=== PATIENT | male | born 1960 | race Caucasian/White ===

== ENCOUNTER 2016-04-23 09:12 | Day surgery (SDC) | payer OTHER ==
--- NOTE | 2016-04-22 16:33 | PCM.PREANE ---
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 Respiratory: Reports: no symptoms Cardiovascular: Reports: no symptoms GI: Reports: no symptoms Other: Reports: diabetes (Type II, suboptimal control, HGB A1C 7.9 on 04/11/16) - PHYSICAL ASSESSMENT Height: 1.65 m Weight: 77.111 kg NPO Status Date: 04/22/16 NPO Status Time: 21:00 ASA Class: 3 Mental Status: alert & oriented x3 Airway Class: Mallampati = 2 Dentition: Reports: dentures (upper) Thyro-Mental Finger Breadths: 3 Mouth Opening Finger Breadths: 3 ROM/Head Extension: full Respiratory Status: lungs clear to auscultation bilaterally Cardiovascular Status: regular rate & rhythm, normal S1, S2, no murmur, blood pressure WNL - ALLERGIES Allergies/Adverse Reactions: Allergies Allergy/AdvReac Type Severity Reaction Status Date / Time meperidine HCl [From Demerol] Allergy Hives Verified 07/04/15 18:59 CT dye Allergy Tachycardia Uncoded 07/04/15 18:59 - ANESTHESIA PLAN Anesthesia Type Planned: general anesthesia, regional block (probable ISB with GETA) - ACKNOWLEDGEMENTS Pt an appropriate candidate for the planned anesthesia: Yes Alternatives and risks of anesthesia discussed w pt/guardian: Yes Pt/Guardian understands and agree with anesthesia plan: Yes PreAnesthesia Questionnaire HEENT History: Reports: Allergic rhinitis, Other (see below) Other HEENT History: wears glasses, has upper denture Cardiovascular History: Reports: High cholesterol Respiratory History: Reports: Sleep apnea Other Respiratory History: sleep apnea in the past, had uvualaectomy, no significant sypmtoms, does not use CPAP Gastrointestinal History: Reports: PUD Other Gastrointestinal History: Gastric ulcer Genitourinary History: Reports: Prostate disorder Psychiatric History: Reports: None Endocrine/Metabolic History: Reports: Diabetes, type II Other Endocrine/Metabolic History: Suboptimal control of Type II diabetes per preoperative exam on 04/11/16. HGB A1C 7.9 in past 2 weeks, improved from 10.1. Oncologic (Cancer) History: Reports: Prostate - Infectious Disease History Infectious Disease History: Reports: None - Past Surgical History Head Surgeries/Procedures: Reports: None HEENT Surgical History: Reports: Naso-sinus surgery, Tonsillectomy Other HEENT Surgeries/Procedures: uvelectomy. septoplasty GI Surgical History: Reports: Appendectomy, Hernia, inguinal Male Surgical History: Reports: Prostatectomy Other Male Surgeries/Procedures: radical prostatectomy Musculoskeletal Surgical History: Reports: Arthroscopic knee, Carpal tunnel Other Musculoskeletal Surgeries/Procedures:: ankle surgery for torn tendons, also right pinky finger degloved in 2001 - SUBSTANCE USE Smoking Status *Q: Current Some Day Smoker Tobacco Use Within Last Twelve Months: Cigars Second Hand Smoke Exposure: No Days Per Week of Alcohol Use: 7 Number of Drinks Per Day: 2 Total Drinks Per Week: 14 Recreational Drug Use History: No - HOME MEDS Home Medications: Home Meds Dulaglutide [Trulicity] 1.5 mg SQ ASDIRECTED 07/04/15 [History] Empagliflozin [Jardiance] 25 mg PO DAILY 07/04/15 [History] atorvaSTATin [Lipitor] 20 mg PO DAILY 07/04/15 [History] Celecoxib 200 mg PO DAILY 04/18/16 [History] Diazepam [Valium] 1 tab PO ASDIRECTED PRN 04/18/16 [History] Glimepiride [Amaryl] 2 mg PO DAILY 04/18/16 [History] - CURRENT (IN HOUSE) MEDS Current Meds: Current Medications Lactated Ringer's (Ringers, Lactated) 1,000 mls @ 100 mls/hr IV ASDIRECTED NELSON Cefazolin Sodium/Dextrose 2 gm (/ Premix) 50 mls @ 100 mls/hr IV ONCALL NELSON Ketorolac Tromethamine (Toradol) 10 mg PO Q6H PRN PRN Reason: Pain Stop: 04/28/16 08:01
[~2016-04-23 09:12] MED LIST: Ketorolac 10 MG Tab PO PRN; Lactated Ringers 1,000 ML IV SCH; ceFAZolin 2 GM in Premix Bag 1 BAG IV SCH
[2016-04-23] MEDS ORDERED: Rocuronium 10 MG/ML 10 ML Syringe ONE (10:03)
[2016-04-23] MEDS ORDERED: Neostigmine Methylsulfate 1 MG/ML 5 ML Syringe ONE (10:03)
[2016-04-23] MEDS ORDERED: Midazolam 1 MG/ML 2 ML SDV ONE (10:03)
[2016-04-23] MEDS ORDERED: Propofol 200 MG/20 ML SDV ONE (10:03)
[2016-04-23] MEDS ORDERED: Lidocaine 2% 5 ML SDV ONE (10:03)
[2016-04-23] MEDS ORDERED: Ondansetron 4 MG/2 ML SDV ONE (10:03)
[2016-04-23] MEDS ORDERED: fentaNYL 250 MCG/5 ML SDV ONE ×2 (10:04→11:40)
[2016-04-23] MEDS ORDERED: Scopolamine 1.5 MG Transdermal Patch TOP ONE (10:12)
[2016-04-23] MEDS ORDERED: Succinylcholine/Normal Saline 200 MG/10 ML Syringe IV ONE (11:23)
[2016-04-23] MEDS ORDERED: ceFAZolin 1 GM Vial ONE (11:31)
[2016-04-23] MEDS ORDERED: Sodium Chloride 0.9% 20 ML ONE (11:31)
[2016-04-23] MEDS ORDERED: Labetalol 5 MG/ML 5 ML Syringe ONE (11:43)
[2016-04-23] MEDS ORDERED: Phenylephrine/Normal Saline 100 MCG/ML 10 ML Syringe ONE (12:13)
[2016-04-23] MEDS ORDERED: ePHEDrine 50 MG/ML SDV ONE (12:37)
--- NOTE | 2016-04-23 13:19 | PCM.OPNOTE ---
- General Post-Op/Procedure Note Date of Surgery/Procedure: 04/23/16 Operative Procedure(s): Right shoulder arthroscopy with SAD, debridement of anterior labrum Post-Op Diagnosis: R shoulder impingement. R shoulder degenerative anterior labral tear Anesthesia Technique: General ET tube Primary Surgeon: Mine Martinez Slitting And Shipping Supervisor: Ike Escobar in mLs: 5 Condition: Good Free Text/Narrative:: #[id number]
[2016-04-23] MEDS ORDERED: Acetaminophen/HYDROcodone 325-10 MG Tab PO PRN (13:24)
[2016-04-23] MEDS ORDERED: fentaNYL 100 MCG/2 ML SDV IVPUSH PRN (13:36)
[2016-04-23] MEDS: HYDROmorphone 2 MG/ML Syringe IVPUSH PRN ×4 (13:40→14:10)
--- NOTE | 2016-04-23 14:19 | PCM.POSTAN ---
POST ANESTHESIA ASSESSMENT - MENTAL STATUS Mental Status: alert, oriented - VITAL SIGNS Pulse Rate: 67 SaO2: 97 Resp Rate: 10 Blood Pressure: 141/88 - RESPIRATORY Respiratory Status: respiratory rate WNL, airway patent, O2 saturation stable, supplemental oxygen - CARDIOVASCULAR CV Status: pulse rate WNL, blood pressure stable - GASTROINTESTINAL GI Status: no symptoms - PAIN Pain Score: 7 (but pt resting comfortably with RR 10/min and states he's doing "better") - POST OP HYDRATION Hydration Status: adequate & stable
[2016-04-23] MEDS ORDERED: Ketorolac 30 MG/ML SDV IVPUSH SCH (14:30)
--- NOTE | 2016-04-23 15:09 | PCM48HPAN ---
Post Anesthesia Note - EVALUATION WITHIN 48HRS OF ANESTHETIC Vital Signs in Normal Range: Yes Patient Participated in Evaluation: Yes Respiratory Function Stable: Yes Airway Patent: Yes Cardiovascular Function Stable: Yes Hydration Status Stable: Yes Pain Control Satisfactory: Yes Nausea and Vomiting Control Satisfactory: Yes Mental Status Recovered: Yes
[2016-04-23 15:40] VITALS: BP 107/69
--- NOTE | 2016-04-23 22:05 | OR ---
SURGEON: Mine Martinez MD DATE OF PROCEDURE: 04/23/2016 PREOPERATIVE DIAGNOSES: 1. Right shoulder partial rotator cuff tear. 2. Right shoulder impingement syndrome. POSTOPERATIVE DIAGNOSES: 1. Right shoulder impingement syndrome. 2. Right shoulder degenerative anterior labral tear. PROCEDURE: Right shoulder arthroscopy with: 1. Debridement of degenerative anterior labral tear. 2. Subacromial decompression with bursectomy, release of coracoacromial ligament, and acromioplasty. OPTICAL ENGINEERING TECHNICIAN: Ike Escobar PA-C. ANESTHESIA: General. ESTIMATED BLOOD LOSS: 5 mL. TOURNIQUET TIME: 0 minutes. COMPLICATIONS: None. DVT PROPHYLAXIS: PAS boots to bilateral lower extremities. IMPLANTS: None. BRIEF HISTORY: Crow is a 55-year-old male, who has had complaint of progressive right shoulder pain. He had failed conservative treatment. Due to his lack of response to conservative treatment, I did recommend surgical intervention. The risks and goals of procedure were discussed with the patient and documented preoperatively. He agreed to proceed. DESCRIPTION OF PROCEDURE: The patient was properly identified and brought to the operating room. He was transferred from the operating room cart to the OR table and placed in supine position. General anesthesia was administered. After adequate anesthesia was obtained, the patient was placed into a beach-chair type position. His head was secured. Care was taken to pad all bony prominences. The right upper extremity was then prepped in standard fashion using ChloraPrep solution. It was then sterilely draped. A time-out was performed to ensure correct site and procedure. Preoperative antibiotics were given. The surgical site had been marked preoperatively. Bony landmarks were marked with a marking pen. Approximately 30 mL of normal saline was introduced into the glenohumeral joint. A posterior portal was then established. Blunt trocar and cannula were introduced into the glenohumeral joint. Camera, inflow, and outflow were assembled. He did have some mild synovitis in the rotator interval. An anterior portal was established. A probe was inserted. The subscapularis was visualized and probed and found to be intact. No loose bodies were identified in the subscapular recess. The anterior labrum showed minor degenerative fraying. There was an area of synovitis along the insertion of the biceps on the superior glenoid. The insertion of the biceps was inspected. There did not appear to be any significant tearing. The biceps was pulled into the joint and no longitudinal tearing or synovitis was noted distally. Electrocautery was then used to resect the portion of the synovitis along with the degenerative anterior labral tear. The posterior labrum did not show any significant degenerative findings. 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 The minor softening consistent with grade 1 to grade 2 chondromalacia was also noted along the humeral head diffusely. The axillary pouch was then entered. No loose bodies were identified. The arm was then brought into an abducted and externally rotated position. The bare area was noted posteriorly. There was good cuff insertion from this point anterior. MRI did show some tearing of the anterior supraspinatus. This was looked at from the articular side and no significant tearing or retraction was noted. The instruments were then removed from the glenohumeral joint. I then entered the subacromial space. Camera, inflow, and outflow were again assembled. A lateral portal was established. A shaver was inserted. Using a combination of the shaver and electrocautery, an extensive bursectomy was performed. He did have quite a bit of hemorrhagic bursal tissue which was adherent to the cuff. This was completely cleared along with the lateral gutter which showed some impingement in that area as well. He did have a large anterior downward slope to his acromion. The coracoacromial ligament was released. A 5.0 mm bur was used to perform an acromioplasty which provided good decompression of the subacromial space. The rotator cuff was then inspected. The anterior portion did not show any significant tearing. I did probe the area extensively and no softening or tearing was noted. The remainder of the cuff was intact as well. I elected not to proceed with the rotator cuff repair. Instruments were then removed from the shoulder. The portal sites were closed with 3-0 nylon. Xeroform gauze was placed over the wound and a bulky dressing was applied. He was awakened from his anesthetic and transferred back to the operating room cart. He was brought to recovery room in stable condition. A sling was placed. All needle and sponge counts were correct. KEVIN / PHLIIP /[id number]
== END 2016-04-23 16:00 | disposition home or self-care (01) ==
LOC: MW.SDS 09:12
PROVIDERS: ATTEND Orthopaedic Surgery
PROC: 0RBJ4ZZ Excision of Right Shoulder Joint, Percutaneous Endoscopic Approach (ICD-10-PCS; principal; 2016-04-23)
DX: M75.111 Incomplete rotator cuff tear or rupture of right shoulder, not specified as traumatic (principal); M75.41 Impingement syndrome of right shoulder; H40.9 Unspecified glaucoma; E78.00 Pure hypercholesterolemia, unspecified; R32 Unspecified urinary incontinence; E11.9 Type 2 diabetes mellitus without complications; Z88.6 Allergy status to analgesic agent; Z79.899 Other long term (current) drug therapy
CPT/HCPCS: 29822; A9270; J0690; J1170; J1885; J2250; J2405; J2710; J3010; J7120; 01630; 82962; 88304; J2704

== ENCOUNTER 2019-04-20 17:28 | Emergency (ER) | payer BC, OTHER ==
--- NOTE | 2019-04-20 19:18 | EDM.PDOC ---
ED HPI GENERAL MEDICAL PROBLEM - General Chief Complaint: Gastrointestinal Problem Stated Complaint: STOMACH PAIN Time Seen by Provider: 04/20/19 19:16 Source of Information: Reports: Patient History Limitations: Reports: No Limitations - History of Present Illness INITIAL COMMENTS - FREE TEXT/NARRATIVE: Patient is a 58-year-old male with no significant past medical history presenting with a chief complaint of diarrhea and abdominal pain. Patient reports recent travel to [facility] returning on the . Patient reports experiencing mild to moderate left lower quadrant pain without radiation. Patient has associated numerous bouts of diarrhea which is watery in nature. Patient denies any nausea or vomiting. Patient denies any bloody diarrhea. Patient has no history of diverticulitis. Patient does report history of hernia surgery and appendicitis. Patient is not taking any medications. Patient denies fevers. Pmhx: None Pshx: None Family Hx: noncontributory Smoking history? no Etoh use? none Drug use? none In addition to that documented in the HPI above, the additional ROS was obtained : Constitutional: Denies fevers or chills Eyes: Denies vision changes ENMT: Denies sore throat CV: Denies chest pain Resp: Denies SOB GI: Per HPI : Denies painful urination MSK: Denies recent trauma Skin: Denies new rashes Neuro: Denies new numbness or tingling or weakness Endocrine: Denies unexpected weight loss Heme: Denies bleeding disorders I have reviewed the triage vital signs Const: Well nourished, well developed, appears stated age Eyes: PERRL, no conjunctival injection HENT: NCAT, Neck supple without meningismus CV: RRR, Warm, well-perfused extremities RESP: CTAB, Unlabored respiratory effort GI: soft, non-tender, non-distended, no masses MSK: No gross deformities appreciated Skin: Warm, dry. No rashes Neuro: Alert, firmware architect II-XII grossly intact. Sensation and motor function of extremities grossly intact. Psych: Appropriate mood and affect Assessment and plan Patient is a 58-year-old male presenting with chief complaint of diarrhea. Patient recently traveled outside of the country into [facility] and likely contracted the infection there. Patient's CT scan does not demonstrate any evidence of diverticulitis but does demonstrate colitis. Patient is tolerating p.o. and has no abnormal vital signs that would require admission. Patient will be given Cipro and Flagyl for the colitis and will be instructed to follow- up as an outpatient. Patient given strict return precautions all questions was answered. Patient repeat abdominal exam is benign. Patient will be discharged home. abd Pain Score (Numeric/FACES): 3 - Related Data Allergies Allergy/AdvReac Type Severity Reaction Status Date / Time meperidine HCl [From Demerol] Allergy Hives Verified 07/04/15 18:59 CT dye Allergy Tachycardia Uncoded 07/04/15 18:59 Home Meds: Home Meds Dulaglutide [Trulicity] 1.5 mg SQ ASDIRECTED 07/04/15 [History] Empagliflozin [Jardiance] 25 mg PO DAILY 07/04/15 [History] atorvaSTATin [Lipitor] 20 mg PO DAILY 07/04/15 [History] Diazepam [Valium] 1 tab PO ASDIRECTED PRN 04/18/16 [History] Glimepiride [Amaryl] 2 mg PO DAILY 04/18/16 [History] Acetaminophen/HYDROcodone [[place] 325-10 MG] 1 - 2 tab PO Q4H PRN #80 tablet [Rx] Ketorolac [Toradol] 10 mg PO Q6H PRN #20 tablet 04/23/16 [Rx] Ciprofloxacin HCl [Cipro] 500 mg PO BID #10 tablet 04/20/19 [Rx] metroNIDAZOLE [Flagyl] 500 mg PO Q12H #10 tab 04/20/19 [Rx] Past Medical History HEENT History: Reports: Allergic Rhinitis, Other (See Below) Other HEENT History: wears glasses, has upper denture Cardiovascular History: Reports: High Cholesterol Respiratory History: Reports: Sleep Apnea Other Respiratory History: sleep apnea in the past, had uvualaectomy, no significant sypmtoms, does not use CPAP Gastrointestinal History: Reports: PUD Other Gastrointestinal History: Gastric ulcer Genitourinary History: Reports: Prostate Disorder Psychiatric History: Reports: None Endocrine/Metabolic History: Reports: Diabetes, Type II Other Endocrine/Metabolic History: Suboptimal control of Type II diabetes per preoperative exam on 04/11/16. HGB A1C 7.9 in past 2 weeks, improved from 10.1. Oncologic (Cancer) History: Reports: Prostate - Infectious Disease History Infectious Disease History: Reports: Chicken Pox, Measles, Mumps - Past Surgical History Head Surgeries/Procedures: Reports: None HEENT Surgical History: Reports: LASIK, Naso-Sinus Surgery, Tonsillectomy GI Surgical History: Reports: Appendectomy, Hernia, Inguinal Musculoskeletal Surgical History: Reports: Arthroscopic Knee, Carpal Tunnel Social & Family History - Family History Family Medical History: Noncontributory HEENT: Reports: None Cardiac: Reports: None - Tobacco Use Smoking Status *Q: Light Tobacco Smoker Years of Tobacco use: 15 Packs/Tins Daily: 0.1 - Recreational Drug Use Recreational Drug Use: No ED ROS GENERAL - Review of Systems Review Of Systems: See Below ED EXAM, GI/ABD - Physical Exam Exam: See Below Course - Vital Signs Last Recorded V/S: Last Vital Signs Temp 35.9 C L 04/20/19 19:08 Pulse 87 04/20/19 19:08 Resp 18 04/20/19 19:08 BP 141/78 H 04/20/19 19:08 Pulse Ox 99 04/20/19 19:08 - Orders/Labs/Meds Orders: Active Orders 24 hr Category Date Time Status OVA & PARASITES BY IMMUNOASSAY [MREF] Stat Lab 04/20/19 18:20 Received STOOL CULTURE/SHIGA TOXIN [MREF] Stat Lab 04/20/19 18:20 Received Labs: Laboratory Tests 04/20/19 04/20/19 04/20/19 Range/Units 18:20 20:48 20:48 WBC 4.18 (4.0-11.0) K/uL RBC 5.30 (4.50-5.90) M/uL Hgb 15.7 (13.0-17.0) g/dL Hct 46.7 (38.0-50.0) % MCV 88.1 (80.0-98.0) fL MCH 29.6 (27.0-32.0) pg MCHC 33.6 (31.0-37.0) g/dL RDW Std Deviation 41.8 (28.0-62.0) fl RDW Coeff of Juan 13 (11.0-15.0) % Plt Count 216 (150-400) K/uL MPV 10.40 (7.40-12.00) fL Neut % (Auto) 59.3 (48.0-80.0) % Lymph % (Auto) 23.2 (16.0-40.0) % [place] % (Auto) 13.4 (0.0-15.0) % Eos % (Auto) 3.6 (0.0-7.0) % Baso % (Auto) 0.5 (0.0-1.5) % Neut # (Auto) 2.5 (1.4-5.7) K/uL Lymph # (Auto) 1.0 (0.6-2.4) K/uL [place] # (Auto) 0.6 (0.0-0.8) K/uL Eos # (Auto) 0.2 (0.0-0.7) K/uL Baso # (Auto) 0.0 (0.0-0.1) K/uL Nucleated RBC % 0.0 /100WBC Nucleated RBCs # 0 K/uL Sodium 134 L (136-148) mmol/L Potassium 3.9 (3.5-5.1) mmol/L Chloride 96 L (98-107) mmol/L Carbon Dioxide 28.7 (21.0-32.0) mmol/L BUN 10 (7.0-18.0) mg/dL Creatinine 1.1 (0.8-1.3) mg/dL Est Cr Clr Drug Dosing 71.30 mL/min Estimated GFR (MDRD) > 60.0 ml/min Glucose 264 H (74-106) mg/dL Calcium 8.9 (8.5-10.1) mg/dL Total Bilirubin 0.6 (0.2-1.0) mg/dL AST 16 (15-37) IU/L ALT 42 (14-63) IU/L Alkaline Phosphatase 81 (46-116) U/L Total Protein 6.9 (6.4-8.2) g/dL Albumin 3.2 L (3.4-5.0) g/dL Globulin 3.7 (2.6-4.0) g/dL Albumin/Globulin Ratio 0.9 (0.9-1.6) Urine Color YELLOW Urine Appearance CLEAR Urine pH 6.0 (5.0-8.0) Ur Specific [place] 1.015 (1.001-1.035) Urine Protein NEGATIVE (NEGATIVE) mg/dL Urine Glucose (UA) >=1000 (NEGATIVE) mg/dL Urine Ketones 40 H (NEGATIVE) mg/dL Urine Occult Blood NEGATIVE (NEGATIVE) Urine Nitrite NEGATIVE (NEGATIVE) Urine Bilirubin NEGATIVE (NEGATIVE) Urine Urobilinogen 0.2 (<2.0) EU/dL Ur Leukocyte Esterase NEGATIVE (NEGATIVE) Meds: Medications Discontinued Medications Generic Name Dose Route Start Last Admin Trade Name Leeroy PRN Reason Stop Dose Admin Ciprofloxacin 500 mg 04/20/19 21:47 Ciprofloxacin Hcl PO 04/20/19 21:48 ONETIME ONE Metronidazole 250 mg 04/20/19 21:47 Metronidazole PO 04/20/19 21:48 ONETIME ONE Departure - Departure Time of Disposition: 21:54 Disposition: Home, Self-Care 01 Clinical Impression: Colitis - Discharge Information Prescriptions: Ciprofloxacin HCl [Cipro] 500 mg PO BID #10 tablet metroNIDAZOLE [Flagyl] 500 mg PO Q12H #10 tab Referrals: PCP,None [Primary Care Provider] - Forms: ED Department Discharge Sepsis Event Note - Evaluation Sepsis Screening Result: No Definite Risk - Focused Exam Vital Signs: Vital Signs Temp Pulse Resp BP Pulse Ox 04/20/19 19:08 35.9 C L 87 18 141/78 H 99 04/20/19 18:25 36.2 C 86 18 137/79 98 Date Exam was Performed: 04/20/19 Time Exam was Performed: 21:54
[2019-04-20 21:22] LABS: BLOOD UREA NITROGEN,BUN 10 mg/dL (7.0-18.0); CARBON DIOXIDE,CO2 28.7 mmol/L (21.0-32.0); CHLORIDE,CL 96 mmol/L (98-107); GLUCOSE RANDOM 264 mg/dL (74-106); POTASSIUM,K 3.9 mmol/L (3.5-5.1); SODIUM,NA 134 mmol/L (136-148)
--- NOTE | 2019-04-20 21:44 | CT ---
INDICATION: Left lower quadrant and lower midline abdominal pain with diarrhea TECHNIQUE: CT abdomen and pelvis acquired without IV contrast. COMPARISON: None FINDINGS: Lower chest: Unremarkable. Liver: Unremarkable. Spleen: Unremarkable. Pancreas: Unremarkable. Gallbladder and bile ducts: Unremarkable. Kidneys: Unremarkable. Adrenal glands: Unremarkable. GI tract: Diffuse colonic wall thickening consistent with colitis. Appendix is not visualized. Vascular structures: Unremarkable. Lymph nodes: Unremarkable. Miscellaneous: Unremarkable. No free air or significant free fluid. Pelvic Organs: Unremarkable. Bones: Unremarkable for age. IMPRESSION: Diffuse colonic wall thickening consistent with colitis. Dictated by Justin Sparrow MD @ 04/20/2019 9:41:55 PM Please note that all CT scans at this facility use dose modulation, iterative reconstruction, and/or weight-based dosing when appropriate to reduce radiation dose to as low as reasonably achievable. Dictated by: Justin Sparrow MD @ 04/20/2019 21:42:06 (Electronically Signed)
[2019-04-20] MEDS ORDERED: metroNIDAZOLE 250 MG Tab PO ONE (21:47)
[2019-04-20] MEDS ORDERED: Ciprofloxacin 500 MG Tab PO ONE (21:47)
[2019-04-20 21:57] VITALS: BP 123/75; PULSE 84
== END 2019-04-20 22:08 | disposition home or self-care (01) ==
LOC: MW.ED 17:28
DX: K52.9 Noninfective gastroenteritis and colitis, unspecified (principal); E11.9 Type 2 diabetes mellitus without complications; E78.00 Pure hypercholesterolemia, unspecified; F17.210 Nicotine dependence, cigarettes, uncomplicated; Z91.041 Radiographic dye allergy status; Z88.5 Allergy status to narcotic agent; Z79.899 Other long term (current) drug therapy
CPT/HCPCS: 36415; 74176; 80053; 81003; 85025; 87045; 87046; 87328; 87329; 87899; 99284; A9270

== ENCOUNTER 2020-05-16 15:04 | Emergency (ER) | payer BC ==
--- NOTE | 2020-05-16 15:11 | EDM.PDOC ---
ED HPI GENERAL MEDICAL PROBLEM - General Chief Complaint: Chest Pain Stated Complaint: EMS Time Seen by Provider: 05/16/20 15:07 Source of Information: Reports: Patient History Limitations: Reports: No Limitations - History of Present Illness INITIAL COMMENTS - FREE TEXT/NARRATIVE: A 59-year-old male history of diabetes hyperlipidemia presents today for left- sided chest pain. Patient states that he was at the police station filed a report for different claim he has an disturbing news of someone I could not to his daughter. Patient did not develop the left-sided chest pain did not radiate to his arm or neck. Patient states that he later found out that his daughter had not been kidnapped but still has chest pain. Patient denies any shortness of breath fever chills cough leg swelling or other symptoms. Left chest Pain Score (Numeric/FACES): 9 - Related Data Allergies Allergy/AdvReac Type Severity Reaction Status Date / Time meperidine HCl [From Demerol] Allergy Hives Verified 05/16/20 15:07 CT dye Allergy Tachycardia Uncoded 07/04/15 18:59 Home Meds: Home Meds Dulaglutide [Trulicity] 1.5 mg SQ ASDIRECTED 07/04/15 [History] Empagliflozin [Jardiance] 25 mg PO DAILY 07/04/15 [History] atorvaSTATin [Lipitor] 20 mg PO DAILY 07/04/15 [History] Diazepam [Valium] 1 tab PO ASDIRECTED PRN 04/18/16 [History] Glimepiride [Amaryl] 2 mg PO DAILY 04/18/16 [History] Acetaminophen/HYDROcodone [[place] 325-10 MG] 1 - 2 tab PO Q4H PRN #80 tablet 04/23/16 [Rx] Ketorolac [Toradol] 10 mg PO Q6H PRN #20 tablet 04/23/16 [Rx] Ciprofloxacin HCl [Cipro] 500 mg PO BID #10 tablet 04/20/19 [Rx] metroNIDAZOLE [Flagyl] 500 mg PO Q12H #10 tab 04/20/19 [Rx] Past Medical History HEENT History: Reports: Allergic Rhinitis, Other (See Below) Other HEENT History: wears glasses, has upper denture Cardiovascular History: Reports: High Cholesterol Respiratory History: Reports: Sleep Apnea Other Respiratory History: sleep apnea in the past, had uvualaectomy, no significant sypmtoms, does not use CPAP Gastrointestinal History: Reports: PUD Other Gastrointestinal History: Gastric ulcer Genitourinary History: Reports: Prostate Disorder Psychiatric History: Reports: None Endocrine/Metabolic History: Reports: Diabetes, Type II Other Endocrine/Metabolic History: Suboptimal control of Type II diabetes per preoperative exam on 04/11/16. HGB A1C 7.9 in past 2 weeks, improved from 10.1. Oncologic (Cancer) History: Reports: Prostate - Infectious Disease History Infectious Disease History: Reports: Chicken Pox, Measles, Mumps - Past Surgical History Head Surgeries/Procedures: Reports: None HEENT Surgical History: Reports: LASIK, Naso-Sinus Surgery, Tonsillectomy GI Surgical History: Reports: Appendectomy, Hernia, Inguinal Musculoskeletal Surgical History: Reports: Arthroscopic Knee, Carpal Tunnel Social & Family History - Family History Family Medical History: No Pertinent Family History HEENT: Reports: None Cardiac: Reports: None ED ROS GENERAL - Review of Systems Review Of Systems: See Below Constitutional: Reports: No Symptoms HEENT: Reports: No Symptoms Respiratory: Reports: No Symptoms Cardiovascular: Reports: Chest Pain Endocrine: Reports: No Symptoms GI/Abdominal: Reports: No Symptoms : Reports: No Symptoms Musculoskeletal: Reports: No Symptoms Skin: Reports: No Symptoms Neurological: Reports: No Symptoms Psychiatric: Reports: No Symptoms Hematologic/Lymphatic: Reports: No Symptoms Immunologic: Reports: No Symptoms ED EXAM, GENERAL - Physical Exam Exam: See Below Exam Limited By: No Limitations General Appearance: Alert, WD/WN Respiratory/Chest: No Respiratory Distress, Lungs Clear, Normal Breath Sounds Cardiovascular: Normal Peripheral Pulses, Regular Rate, Rhythm, No Edema GI/Abdominal: Normal Bowel Sounds Extremities: Normal Inspection, Normal Range of Motion Neurological: Alert, Oriented, Normal Cognition, Normal Gait #1 Interpretation EKG Date: 05/16/20 Time: 15:10 Rhythm: NSR Rate (Beats/Min): 79 ST-T: Normal Course - Vital Signs Last Recorded V/S: Last Vital Signs Temp 97.6 F 05/16/20 15:07 Pulse 78 05/16/20 19:57 Resp 16 05/16/20 16:12 BP 127/79 05/16/20 19:57 Pulse Ox 98 05/16/20 19:57 - Orders/Labs/Meds Labs: Laboratory Tests 05/16/20 05/16/2021 Range/Units 15:40 15:40 18:48 WBC 5.84 (4.0-11.0) K/uL RBC 5.02 (4.50-5.90) M/uL Hgb 15.4 (13.0-17.0) g/dL Hct 43.3 (38.0-50.0) % MCV 86.3 (80.0-98.0) fL MCH 30.7 (27.0-32.0) pg MCHC 35.6 (31.0-37.0) g/dL RDW Std Deviation 40.1 (28.0-62.0) fl RDW Coeff of Juan 13 (11.0-15.0) % Plt Count 221 (150-400) K/uL MPV 10.90 (7.40-12.00) fL Neut % (Auto) 69.6 (48.0-80.0) % Lymph % (Auto) 21.9 (16.0-40.0) % Mccracken % (Auto) 7.2 (0.0-15.0) % Eos % (Auto) 1.0 (0.0-7.0) % Baso % (Auto) 0.3 (0.0-1.5) % Neut # (Auto) 4.1 (1.4-5.7) K/uL Lymph # (Auto) 1.3 (0.6-2.4) K/uL Mccracken # (Auto) 0.4 (0.0-0.8) K/uL Eos # (Auto) 0.1 (0.0-0.7) K/uL Baso # (Auto) 0.0 (0.0-0.1) K/uL Nucleated RBC % 0.0 /100WBC Nucleated RBCs # 0 K/uL Sodium 137 (136-148) mmol/L Potassium 3.9 (3.5-5.1) mmol/L Chloride 101 (98-107) mmol/L Carbon Dioxide 25.4 (21.0-32.0) mmol/L BUN 16 (7.0-18.0) mg/dL Creatinine 1.0 (0.8-1.3) mg/dL Est Cr Clr Drug Dosing 70.04 mL/min Estimated GFR (MDRD) > 60.0 ml/min Glucose 268 H (74-106) mg/dL Calcium 9.3 (8.5-10.1) mg/dL Phosphorus 3.4 (2.6-4.7) mg/dL Magnesium 1.7 L (1.8-2.4) mg/dL Total Bilirubin 0.5 (0.2-1.0) mg/dL AST 11 L (15-37) IU/L ALT 25 (14-63) IU/L Alkaline Phosphatase 65 (46-116) U/L Creatine Kinase 24 L 26 (26-308) U/L Troponin I < 0.050 < 0.050 (0.000-0.056) ng/mL Total Protein 6.7 (6.4-8.2) g/dL Albumin 3.5 (3.4-5.0) g/dL Globulin 3.2 (2.6-4.0) g/dL Albumin/Globulin Ratio 1.1 (0.9-1.6) Lipase 97 (73-393) U/L Meds: Medications Discontinued Medications Generic Name Dose Route Start Last Admin Trade Name nAdryq PRN Reason Stop Dose Admin Morphine Sulfate 4 mg 05/16/20 15:52 05/16/20 16:10 Morphine 4 Mg/Ml Syringe IVPUSH 05/16/20 15:53 4 mg ONETIME ONE Administration - Re-Assessments/Exams Free Text/Narrative Re-Assessment/Exam: 05/16/20 16:53 And first set of troponins is negative. Patient chest pain also improved. Will repeat troponin and if negative will likely discharge home. Departure - Departure Time of Disposition: 18:59 Disposition: Home, Self-Care 01 Condition: Good Clinical Impression: Chest pain Instructions: Nonspecific Chest Pain, Adult, [id number] Referrals: PCP,None [Primary Care Provider] - Forms: ED Department Discharge Additional Instructions: The following information is given to patients seen in the emergency department who are being discharged to home. This information is to outline your options for follow-up care. We provide all patients seen in our emergency department with a follow-up referral. The need for follow-up, as well as the timing and circumstances, are variable depending upon the specifics of your emergency department visit. If you don't have a primary care physician on staff, we will provide you with a referral. We always advise you to contact your personal physician following an emergency department visit to inform them of the circumstance of the visit and for follow-up with them and/or the need for any referrals to a consulting specialist. The emergency department will also refer you to a specialist when appropriate. This referral assures that you have the opportunity for follow-up care with a specialist. All of these measure are taken in an effort to provide you with optimal care, which includes your follow-up. Under all circumstances we always encourage you to contact your private physician who remains a resource for coordinating your care. When calling for follow-up care, please make the office aware that this follow-up is from your recent emergency room visit. If for any reason you are refused follow-up, please contact the [facility] Emergency Department at and asked to speak to the emergency department charge nurse. Please follow up with your primary care physician. If you do not have a primary care physician, see below: Cardiac Rehabilitation at [address] [address] Please when you leave here for follow-up with a quality checker number above. Having increased chest pain other symptoms please return to the ED. Sepsis Event Note (ED) - Evaluation Sepsis Screening Result: No Definite Risk - Assessment/Plan Plan: Is a 59-year-old male who presents today for left-sided chest pain. Chest pain is started he has disturbed me. Patient has a heart score of 3 due to age and risk factors. Will obtain 2 sets troponins and reassess. Patient likely be discharged home.
[2020-05-16] MEDS ORDERED: Morphine 4 MG/ML Syringe IVPUSH ONE (15:52)
--- NOTE | 2020-05-16 16:00 | CR ---
INDICATION: left side chest pain. 2 images. prior 11-apr-2016 TECHNIQUE: Chest 2 views. COMPARISON: 04/11/16 FINDINGS: Cardiovascular and mediastinum: Heart size and vasculature are normal in caliber and appearance. Mediastinum is within normal limits. Lungs and pleural spaces: Lungs are clear. No sign of infiltrate or mass. No sign of pleural effusion. No pneumothorax. Bones and soft tissues: No significant findings. IMPRESSION: Unremarkable chest. Dictated by: Justin Sparrow MD @ 05/16/2020 15:58:39 (Electronically Signed)
[2020-05-16 16:17] LABS: BLOOD UREA NITROGEN,BUN 16 mg/dL (7.0-18.0); CARBON DIOXIDE,CO2 25.4 mmol/L (21.0-32.0); CHLORIDE,CL 101 mmol/L (98-107); GLUCOSE RANDOM 268 mg/dL (74-106); LIPASE 97 U/L (73-393); POTASSIUM,K 3.9 mmol/L (3.5-5.1); SODIUM,NA 137 mmol/L (136-148)
[2020-05-16 19:58] VITALS: BP 127/79; PULSE 78
== END 2020-05-16 19:57 | disposition home or self-care (01) ==
LOC: MW.ED 15:04
DX: R07.9 Chest pain, unspecified (principal); E78.00 Pure hypercholesterolemia, unspecified; E11.9 Type 2 diabetes mellitus without complications; Z88.8 Allergy status to other drugs, medicaments and biological substances; Z91.041 Radiographic dye allergy status; Z79.899 Other long term (current) drug therapy; Z90.49 Acquired absence of other specified parts of digestive tract
CPT/HCPCS: 36415; 71046; 80053; 82550; 83690; 83735; 84100; 84484; 85025; 93005; 96374; 99285; J2270; 93010; 99283

== ENCOUNTER 2021-06-30 11:52 | Emergency (ER) | payer BC ==
[2021-06-30] MEDS ORDERED: Dexamethasone 4 MG/ML SDV IVPUSH STA (11:57)
[2021-06-30 13:42] VITALS: BP 120/72; PULSE 65
== END 2021-06-30 13:45 | disposition home or self-care (01) ==
LOC: MW.ED 11:52
DX: T63.481A Toxic effect of venom of other arthropod, accidental (unintentional), initial encounter (principal); E78.00 Pure hypercholesterolemia, unspecified; E11.9 Type 2 diabetes mellitus without complications; Z91.030 Bee allergy status; Z91.041 Radiographic dye allergy status; Z79.899 Other long term (current) drug therapy
CPT/HCPCS: 96374; 99283; J1100

== ENCOUNTER 2023-10-31 16:29 | Emergency (ER) | payer SELFPAY ==
[2023-10-31] MEDS: methylPREDNISolone Sodium Succinate 125 MG/2 ML SDV IVPUSH STA (16:48)
[2023-10-31] MEDS: Famotidine 20 MG/2 ML SDV IVPUSH STA (16:48)
[2023-10-31] MEDS: Sodium Chloride 0.9% 1,000 ML IV STA (16:48)
[2023-10-31] MEDS: diphenhydrAMINE 50 MG/ML SDV IVPUSH STA (16:48)
[2023-10-31 18:46] VITALS: BP 105/67; PULSE 83
== END 2023-10-31 18:45 | disposition home or self-care (01) ==
LOC: MW.ED 16:29
DX: T63.441A Toxic effect of venom of bees, accidental (unintentional), initial encounter (principal); E78.00 Pure hypercholesterolemia, unspecified; E11.9 Type 2 diabetes mellitus without complications; Z90.49 Acquired absence of other specified parts of digestive tract; Z79.899 Other long term (current) drug therapy; Z91.030 Bee allergy status; Z91.048 Other nonmedicinal substance allergy status; Z88.8 Allergy status to other drugs, medicaments and biological substances; Z75.8 Other problems related to medical facilities and other health care
CPT/HCPCS: 96361; 96374; 96375; 99284; J1200; J2919; J3490; J7030

== ENCOUNTER 2025-01-14 08:32 | Day surgery (SDC) | payer BC ==
[2025-01-14] MEDS: Lactated Ringers 1,000 ML IV SCH (09:48)
[2025-01-14] MEDS ORDERED: propofoL 500 MG/50 ML 50 ML ONE (10:14)
[2025-01-14] MEDS ORDERED: Lactated Ringers 1,000 ML IV SCH (11:30)
[2025-01-14 13:21] VITALS: BP 112/65; PULSE 65
== END 2025-01-14 12:12 | disposition home or self-care (01) ==
LOC: MW.SDS 08:32
PROVIDERS: ATTEND Surgery
DX: Z12.11 Encounter for screening for malignant neoplasm of colon (principal); E78.00 Pure hypercholesterolemia, unspecified; E11.9 Type 2 diabetes mellitus without complications; F17.210 Nicotine dependence, cigarettes, uncomplicated; Z88.0 Allergy status to penicillin; Z88.8 Allergy status to other drugs, medicaments and biological substances; Z88.5 Allergy status to narcotic agent; Z91.09 Other allergy status, other than to drugs and biological substances; Z91.041 Radiographic dye allergy status; Z91.030 Bee allergy status; Z79.899 Other long term (current) drug therapy
CPT/HCPCS: 45378; J2003; J2704; J7120; 00812